=== PATIENT | female | born 1995 | race African-American/Black ===

== ENCOUNTER 2019-04-25 13:14 | Emergency (ER) | payer MEDICAID, SELFPAY ==
[2019-04-25 13:16] VITALS: BP 131/79; PULSE 103; RESP 16; TEMP 36.6; O2SAT 99; BMI 39.1
--- NOTE | 2019-04-25 13:29 | ED.DCSUM_ITS ---
History of Present Illness Chief Complaint: Female C/O Informant: Patient Onset: Month(s) Context: Sudden Onset Timing: Intermittent Quality: Painful lesion and vaginal discharge Location: Vaginal opening Current Severity: Mild Maximum Severity: Moderate Worsened by: Urination and touch Relieved by: Nothing Associated Symptoms: Gritty white discharge Narrative: Patient is a 23-year-old G1, P0 Ab1 female who has not been sexually active for the last 2 months presents with painful urination and vaginal discharge. She has history of chlamydia. She denies fever, chills night sweats. She denies photophobia or ocular symptoms. She denies myalgias or arthralgias. She denies frequency or hematuria. There is a family history of diabetes. She hss never been told she is diabetic. Report polyuria and frequency. She has no other complaints. She does not recall if her sniffing other is circumcised or not. Prior similar symptoms: No Recent Illness/Hospitalization: No - Past Medical History (1) History of sexually transmitted disease Status: Acute Past Medical History - Allergies and Home Meds Allergies/Adverse Reactions: Allergies amoxicillin Allergy (Verified 04/25/19 13:16) Shortness of breath Prior records reviewed: Yes Surgical History: - - Elective AB Lives: Alone Smoking Status: Current every day smoker Alcohol: Rare Review of Systems General: Denies: Chills, Fever, Sweats Eyes: Denies: Visual changes - bilaterally, Diplopia ENT: Denies: Rhinorrhea, Sore throat Cardiovascular: Denies: Chest pain, Palpitations Respiratory: Denies: Dyspnea, Cough, Dyspnea on exertion Gastrointestinal: Denies: Abdominal pain, Nausea, Vomiting, Diarrhea, Melena, Hematochezia Genitourinary: Reports: Frequency. Denies: Dysuria, Hematuria Musculoskeletal: Denies: Myalgias, Arthralgias, Neck pain, Back pain, Swelling, Extremity Pain Skin: Denies: Rash, Wounds Neurological: Denies: Headache, Weakness, Numbness Endocrine: Reports: Polyuria. Denies: Polydipsia Hematologic: Denies: Easy bruising, Easy bleeding Physical Exam Vital Signs/Narrative: Vital Signs Temp Pulse Resp BP Pulse Ox 04/25/19 13:16 97.8 F 103 H 16 131/79 H 99 Inital Vital Signs reviewed: Yes General: Well nourished, Well developed, No Acute Distress Head: Normocephalic, Atraumatic Eyes: Perrl, EOMI ENT: Moist mucous membranes, No rhinorrhea Neck: Supple, Nontender Cardiovascular: Regular rate, Regular rhythm, No murmurs Respiratory: No distress, CTA bilaterally, Chest nontender Abdomen: Soft, Nontender, Nondistended, Normal bowel sounds, No masses : - - There are ulcerative lesions noted near the introitus. These ulcerative lesions are very painful. There is a thin whitish discharge noted. There is no inflammation of the urethra. There is no inflammation of the introitus. There is no vaginal discharge. There is no inguinal lymphadenopathy. There is no evidence of abscess or cellulitis. Back: Nontender, Normal Inspection Extremities: Nontender, No edema Skin: Normal color, No rash Neurological: Alert, Oriented x3, Cranial nerves II-XII grossly intact, Normal Strength, Normal Sensation, Normal Gait Psychological: Normal affect, Normal Mood Diagnostic/Tx/Re-eval Laboratory Results 04/25/19 04/25/19 13:42 14:00 Urine Color Yellow Urine Clarity Sl. Cloudy Urine pH 6.0 Ur Specific [place] 1.015 Urine Protein 15 H Urine Glucose (UA) Normal Urine Ketones 5 H Urine Occult Blood Negative Urine Nitrite Negative Urine Bilirubin Negative Urine Urobilinogen Normal Ur Leukocyte Esterase 25 H Urine RBC 0-5 SEEN Urine WBC 0-5 SEEN Ur Squamous Epith Cells 5-10 SEEN Urine Bacteria RARE Urine Mucus 0 SEEN POC Glucose 70 - Medical Decision Making Since patient has painful ulcerative lesions concern for HSV infection. Culture was obtained. With history of sexually transmitted disease will obtain urine for GC and chlamydia. Because there is a family history of diabetes with polyuria and frequency a blood glucose test was obtained. If blood sugar is elevated will obtain BMP to assess CO2/anion gap as well as renal function and electrolytes. Urine for GC and chlamydia are pending and will not be available for 24 hours. Test for HSV will not be available for 48 hours. Patient has been instructed the cause of her pain and lesion is unknown. Testing will take 24 to 48 hours to return. She was informed if her tests are positive she will be notified. ED Disposition - Plan for ED Patient: Diagnosis: Vaginal lesion Instructions: PAIN, Uncertain Cause (Acute), STD, Suspected (Culture Only) Additional Instructions: Follow-up with the primary care physician ?2 by your insurance carrier, [employer]
[2019-04-25 13:46] LABS: Bedside Glucose 70 mg/dL (70-110)
[2019-04-25 14:22] LABS: Mucous, Urine 0 SEEN /hpf (<or=2+)
[2019-04-25 14:25] LABS: Color, Urine Yellow (Yellow); Glucose, Dipstick Normal (Normal); Ketone-Dipstick 5 mg/dl (Negative); Leukocyte Esterase-Dipstick 25 /ul (Negative); Nitrite-Dipstick Negative (Negative); Occult Blood-Urine Negative /ul (Negative); Protein-Dipstick 15 mg/dl (Negative); Specific Gravity, Urine 1.015 (1.002-1.030); Urine Bilirubin Dipstick Negative (Negative); Urine Clarity Sl. Cloudy (Clear); Urine Urobilinogen Normal (Normal)
[2019-04-25 14:36] LABS: Bacteria RARE /hpf (None Seen); Red Blood Cells-Urine 0-5 SEEN /hpf (0-5); Squamous Epithelial Cells - UA 5-10 SEEN /hpf (5-10); White Blood Cells 0-5 SEEN /hpf (0-5)
[2019-04-25 16:13] VITALS: BP 143/92; PULSE 81; RESP 16; O2SAT 99
[2019-04-25 16:24] LABS: Chlamydia Trachomatis by PCR Negative (Negative); Neisserai gonorrhoeae by PCR Negative (Negative); Probe Check PASS; Sample Adequacy Control PASS; Specimen Processing Control PASS
== END 2019-04-25 16:13 | disposition home or self-care (01) ==
LOC: ED 13:56
PROVIDERS: Emergency Provider Emergency Medicine
DX: N89.8 Other specified noninflammatory disorders of vagina (principal); R35.0 Frequency of micturition; Z86.19 Personal history of other infectious and parasitic diseases; Z83.3 Family history of diabetes mellitus; F17.200 Nicotine dependence, unspecified, uncomplicated
CPT/HCPCS: 81001; 82962; 87491; 87529; 87591; 99282; A4216

== ENCOUNTER 2019-05-10 02:15 | Emergency (ER) | payer MEDICAID, SELFPAY ==
[2019-05-10 02:16] VITALS: BP 124/77; PULSE 102; RESP 16; TEMP 35.8; O2SAT 100; BMI 45.3
--- NOTE | 2019-05-10 02:30 | ED.DCSUM_ITS ---
- ER Visit Summary Date of Service: 05/10/19 Chief Complaint: Dental pain History of Present Illness: The patient is a 23 F who presents with dental pain. This been going on for about 3 days. She actually has an appointment later today. She states she just could not take the pain. However she did not take any medications. No fevers facial or jaw swelling hot or cold sensitivity. When asked about relieving or exacerbating factors she states it is worse when she is around people that annoy her. Physical Examination: Afebrile vitals unremarkable No focal dental abscess, no trismus, no sublingual edema, clear speech, he does have focal tenderness on percussion of the left mandibular first molar and there is severe decay of this tooth Test Results: Not indicated Emergency Department Course and Treatment: Patient given prescriptions for naproxen and clindamycin and advised to keep her appointment with dentistry. Treatment Plan: [] Disposition: Discharge Impression: Odontalgia This note was generated with [employer] dictation software. It may contain incorrect words, spelling, and punctuation that were not noted in review of the chart prior to signing ED Disposition - Plan for ED Patient: Referrals: Care Physician,No Primary [Primary Care Provider] -
--- NOTE | 2019-05-10 02:32 | ED.DEP ---
ED Disposition - Plan for ED Patient: Instructions: Dental Pain Prescriptions: Clindamycin HCl [Cleocin] 300 mg PO Q8H #30 cap Prescription Printed Naproxen [Naprosyn] 500 mg PO BID #20 tab Prescription Printed Referrals: Care Physician,No Primary [Primary Care Provider] -
== END 2019-05-10 02:50 | disposition home or self-care (01) ==
LOC: ED 02:40
PROVIDERS: Emergency Provider Emergency Medicine
DX: K08.89 Other specified disorders of teeth and supporting structures (principal); K02.9 Dental caries, unspecified; J45.909 Unspecified asthma, uncomplicated; Z72.0 Tobacco use
CPT/HCPCS: 99282